=== PATIENT | female | born 1990 | race Caucasian/White ===

== ENCOUNTER 2024-09-16 14:16 | Emergency (ER) | payer OTHER, SELFPAY ==
[2024-09-16 14:17] VITALS: BP 135/110; PULSE 72; RESP 16; TEMP 36.8; O2SAT 97; BMI 23.3
--- NOTE | 2024-09-16 14:32 | EKG12_ITS ---
Test Reason : GENERAL Blood Pressure : */* mmHG Vent. Rate : 63 BPM Atrial Rate : 63 BPM P-R Int : 130 ms QRS Dur : 70 ms QT Int : 444 ms P-R-T Axes : 74 71 79 degrees QTcB Int : 454 ms Normal sinus rhythm Normal ECG Confirmed by Farhad Ramires ([id number]), telegraph editor ANABEL PEREZ ([id number]) on 09/18/2024 10:54:43 AM Referred By: Confirmed By: Farhad Ramires
--- NOTE | 2024-09-16 14:43 | EDS_ITS ---
HPI <MALACHI Alcazar - Last Filed: 09/16/24 17:00> History of Present Illness Chief Complaint: General Illness Narrative Narrative: 33-year-old female with past medical history of long COVID presents with low heart rate. She states her Apple Watch has notified her that her heart rate is running in the 40s at rest over the last week. Occasionally while she sleeps it drops to the high 30s. It goes up to a normal range with activity. She states she has felt like crap this week describing an increase in her chronic long COVID symptoms which include fatigue, nausea, chest pain, and generalized weakness. She has a telehealth appointment with her [facility] doctor on Wednesday but her mom felt she should not wait that long to be seen. The only medication she takes is methadone for the last 5 years. PFSH <MALACHI Alcazar - Last Filed: 09/16/24 17:00> [facility] Medical History (Updated 09/16/24 @ 17:00 by MALACHI Alcazar) Chronic headaches Substance abuse Anxiety Depression Smoker Long COVID Seizures (~06/17/22) Home Medications ?Medication ?Instructions ?Recorded ?Last Taken ?Type aspirin 81 mg tablet 81 mg PO DAILY 09/16/24 05/ History melatonin 10 mg capsule 20 mg PO QHS 09/16/24 History methadone 10 mg tablet 135 mg PO DAILY 09/16/24 Unk nown History Allergy/AdvReac Type Severity Reaction Status Date / Time No Known Allergies Allergy Verified 09/16/24 14:17 Social History Smoking Status: Current every day smoker tobacco type: cigarettes ROS <MALACHI Alcazar - Last Filed: 09/16/24 17:00> ROS ED ROS Narrative Constitutional: Positive for malaise. No fever or chills. CVS: Positive for chest pain. No palpitations or syncope. Respiratory: Negative for shortness of breath, cough, orthopnea. GI: Positive for nausea. No abdominal pain. : Negative for dysuria. Neuro: Negative for headache. EXAM <MALACHI Alcazar - Last Filed: 09/16/24 17:00> Physical Exam Narrative Exam Narrative: CONST: Patient sitting in no acute distress. EYES: Normal inspection. NECK: Normal inspection. RESP: No respiratory distress, CTAB. CVS: Regular rate and rhythm, no murmur, no gallop. ABD: Soft and nontender, no guarding or rebound, nondistended. SKIN: Color normal, no rash, warm, dry, intact. EXTREMITIES: Normal appearance, no pedal edema. NEURO: Alert and answering questions appropriately. PSYCH: Normal affect. Const Vital Signs: 09/16/24 14:17 09/16/24 14:27 09/16/24 16:26 Temperature 98.3 F Temperature Source Oral Pulse Rate 72 65 Respiratory Rate 16 21 H Respiratory Effort Normal Respiratory Pattern Normal Blood Pressure 135/110 H 122/75 H Blood Pressure Mean 118 90 Pulse Ox 97 100 Oxygen Delivery Method Room Air Room Air 09/16/24 16:49 Temperature 98.2 F Temperature Source Pulse Rate 54 L Respiratory Rate 19 H Respiratory Effort Respiratory Pattern Blood Pressure 129/82 H Blood Pressure Mean 97 Pulse Ox 97 Oxygen Delivery Method <Dr. Rafi Pratt DO - Last Filed: 09/16/24 19:38> Physical Exam Const Vital Signs: 09/16/24 14:17 09/16/24 14:27 09/16/24 16:26 Temperature 98.3 F Temperature Source Oral Pulse Rate 72 65 Respiratory Rate 16 21 H Respiratory Effort Normal Respiratory Pattern Normal Blood Pressure 135/110 H 122/75 H Blood Pressure Mean 118 90 Pulse Ox 97 100 Oxygen Delivery Method Room Air Room Air 09/16/24 16:49 Temperature 98.2 F Temperature Source Pulse Rate 54 L Respiratory Rate 19 H Respiratory Effort Respiratory Pattern Blood Pressure 129/82 H Blood Pressure Mean 97 Pulse Ox 97 Oxygen Delivery Method [facility] <MALACHI Alcazar - Last Filed: 09/16/24 17:00> [facility] Narrative Medical decision making narrative: History gathered from: Patient and her parents Differential includes but not limited to normal variance, electrolyte derangement, drug abuse 33-year-old female presents for evaluation of episodic bradycardia x 1 week. She also reports an increase in her long COVID symptoms including fatigue, nausea, and chest pain. She appears well and nontoxic. Vitals are stable?BP 135/110, NSR in the 70s, 97% on room air. During my exam her blood pressure is normalized at 120s/80s. Overall exam is benign. EKG shows normal sinus rhythm at rate of 63 bpm with what appeared to be U waves. Her blood work is all within normal limits including CBC, CMP, magnesium, and TSH. Urine drug screen is positive for methadone which she is prescribed and fentanyl which should not the positive with only methadone use. After patient was informed of these results, she states she did use IV fentanyl 4 days ago and uses it once a month. Cardiology was consulted and Dr. Doll reviewed the EKG and agreed today her U waves. It may be secondary to drug abuse. During the entirety of her stay here she was not bradycardic. 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 She was provided a referral here but may follow-up in [place] where she lives. Supervisory Physician Note Patient was seen and examined with the Advanced Practice Provider. Nursing notes and vital signs have been reviewed. Pertinent old records have been reviewed. I agree with the essential elements of the JIMBO's history, physical exam, assessment, and plan. The differential diagnosis and management options were discussed with the JIMBO. I participated in determining and agree with the management, procedures, final impression and disposition as documented. See changes noted by me. Please see addendum or separate note for any additional details. 33-year-old female with past medical history of long COVID, previous substance abuse on methadone presents for evaluation of bradycardia. Patient states for the the past several days her Apple Watch has showed intermittent bradycardia. She states her bradycardia has mostly been in the 40s but occasionally into the 30s when she sleeps. She states that it quickly resolves with ambulation. Associated symptom is general malaise Including fatigue, nausea, generalized weakness, chest pain -patient states that these are the symptoms of her long COVID. She currently denies any fever, chills, shortness of breath, chest pain, URI symptoms, abdominal pain, vomiting, dysuria. Denies . Denies any illicit drug abuse other than her daily methadone. Patient states she takes 130 mg of methadone daily. States her methadone dose has not been changed in 5 years. She lives in [place]. Gen: A&O x3, NAD Head: Normocephalic, atraumatic Eyes: No sclera icterus, conjunctiva clear, PERRL, EOMI ENT: Moist mucous membranes Neck: Trachea midline, No JVD, full range of motion CV: RRR, no murmurs, no peripheral edema Resp: Lungs CTA BL, no w/r/c GI: Abd soft, non-distended, non-tender, no r/r/g Musc: Full ROM, no deformity Skin: Warm, dry Neuro: Alert, oriented, grossly intact, sensation intact Psych: Cooperative, appropriate mood and affect Differential diagnosis includes but is not limited to arrhythmia, electrolyte abnormality, dehydration, thyroid disease, anemia, SHARATH, substance abuse, UTI. On presentation, vitals are stable other than some mild hypertension. Heart rate normal. Laboratory workup ordered including EKG and chest x-ray. EKG was personally reviewed and interpreted by tx, ED physician. EKG shows normal sinus rhythm with a heart rate of 64. Patient has a small deflection after the T wave. Repeat EKG ordered. EKG again shows normal sinus rhythm with a heart rate of 64. Again the deflection is seen diffusely concerning for U wave. Chest x-ray was personally reviewed interpreted by tx, ED physician. No c ardiomegaly, effusion, pneumothorax, pneumonia. CBC without leukocytosis or anemia. Platelets unremarkable. BMP unremarkable without significant electrolyte abnormality. Magnesium unremarkable. No SHARATH. TSH unremarkable. UA negative for UTI including ketones. Urine drug screen positive for methadone and fentanyl. Urine negative. Patient was updated of the fentanyl found in her urine. She does admit to using fentanyl this week. However states she does not use regularly. At this point in time, no clear etiology for patient's intermittent bradycardia. Patient has remained in normal sinus rhythm here in the emergency department. However given concern for possible U wave, cardiology was consulted and I spoke with Dr. Guzman. He personally reviewed the EKGs, agrees that this appears to be a U wave however given electrolytes are unremarkable recommends follow-up outpatient with cardiology. Holter monitor. Patient updated of all the results and confirmed understanding. Return precautions explained. Patient stable to discharge home. Impression: 1. Episodic bradycardia 2. U waves on EKG 3. Methadone use 4. Fentanyl abuse Lab Data Attestation: I reviewed the patient's lab results. Labs: Laboratory Results - last 24 hr 09/16/24 09/16/24 15:10 15:25 WBC 9.6 RBC 4.47 Hgb 13.6 Hct 39.8 MCV 89.0 MCH 30.4 MCHC 34.2 RDW Std Deviation 37.9 RDW Coeff of Isabelle 11.7 Plt Count 250 MPV 10.6 Immature Gran % (Auto) 0.200 Neut % (Auto) 75.4 H Lymph % (Auto) 18.7 L Forrest % (Auto) 4.6 Eos % (Auto) 0.7 Baso % (Auto) 0.4 Absolute Neuts (auto) 7.3 Absolute Lymphs (auto) 1.80 Nucleated RBC % 0 Sodium 137 Potassium 4.1 Chloride 101 Carbon Dioxide 24.2 Anion Gap 12 BUN 8 Creatinine 0.88 Estim Creat Clear Calc 95.03 Est GFR (MDRD) Non-Af 89 BUN/Creatinine Ratio 9.7 L Glucose 104 H Calcium 9.7 Magnesium 1.9 Troponin T High Sens < 6 TSH 1.260 Urine Color Straw Urine Clarity Clear Urine pH 6.5 Ur Specific [place] 1.005 Urine Protein Negative Urine Glucose (UA) Normal Urine Ketones Negative Urine Occult Blood Negative Urine Nitrite Negative Urine Bilirubin Negative Urine Urobilinogen Normal Ur Leukocyte Esterase Negative Urine RBC 0-5 SEEN Urine WBC 0-5 SEEN Ur Squamous Epith Cells 0-5 SEEN Urine Bacteria 0 SEEN Urine Mucus 0 SEEN Urine Test Negative Urine Opiates Screen NEGATIVE U Buprenorphine Qual NEGATIVE Ur Oxycodone Screen NEGATIVE Urine Methadone Screen PRESUMPTIVE POSITIVE Urine Fentanyl Screen PRESUMPTIVE POSITIVE Ur Barbiturates Screen NEGATIVE Ur Phencyclidine Scrn NEGATIVE Ur Amphetamines Screen NEGATIVE U Benzodiazepines Scrn NEGATIVE Urine Cocaine Screen NEGATIVE U Cannabinoids Screen NEGATIVE Radiography Diagnostic Testing: Clinical Impression(s) from Imaging Studies Chest X-Ray 09/16/24 15:30 IMPRESSION: No acute cardiopulmonary process. Reading Location: [facility] ED attending interpretation of 2-view chest x-ray shows normal heart size, no acute infiltrate, edema, or effusion. EKG Initial EKG: Attestation: I personally reviewed and interpreted this EKG as follows: Interpretation: Sinus Rhythm and No Acute Injury Pattern Comments: EKG shows normal sinus rhythm at 63 bpm but there are occasional appearance of U waves, repeat EKG shows U waves in all leads. Prior EKG tracings: not available for review <Dr. Rafi Pratt, DO - Last Filed: 09/16/24 19:38> [facility] MDM Narrative Medical decision making narrative: History gathered from: Patient and her parents Differential includes but not limited to normal variance, electrolyte derangement, drug abuse 33-year-old female presents for evaluation of episodic bradycardia x 1 week. She also reports an increase in her long COVID symptoms including fatigue, nausea, and chest pain. She appears well and nontoxic. Vitals are stable?BP 135/110, NSR in the 70s, 97% on room air. During my exam her blood pressure is normalized at 120s/80s. Overall exam is benign. EKG shows normal sinus rhythm at rate of 63 bpm with what appeared to be U waves. Her blood work is all within normal limits including CBC, CMP, magnesium, and TSH. Urine drug screen is positive for methadone which she is prescribed and fentanyl which should not the positive with only methadone use. After patient was informed of these results, she states she did use IV fentanyl 4 days ago and uses it once a month. Cardiology was consulted and Dr. Doll reviewed the EKG and agreed today her U waves. It may be secondary to drug abuse. During the entirety of her stay here she was not bradycardic. 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 She was provided a referral here but may follow-up in [place] where she lives. Supervisory Physician Note Patient was seen and examined with the Advanced Practice Provider. Nursing notes and vital signs have been reviewed. Pertinent old records have been reviewed. I agree with the essential elements of the JIMBO's history, physical exam, assessment, and plan. The differential diagnosis and management options were discussed with the JIMBO. I participated in determining and agree with the management, procedures, final impression and disposition as documented. See changes noted by me. Please see addendum or separate note for any additional details. 33-year-old female with past medical history of long COVID, previous substance abuse on methadone presents for evaluation of bradycardia. Patient states for the the past several days her Apple Watch has showed intermittent bradycardia. She states her bradycardia has mostly been in the 40s but occasionally into the 30s when she sleeps. She states that it quickly resolves with ambulation. Associated symptom is general malaise Including fatigue, nausea, generalized weakness, chest pain -patient states that these are the symptoms of her long COVID. She currently denies any fever, chills, shortness of breath, chest pain, URI symptoms, abdominal pain, vomiting, dysuria. Denies . Denies any illicit drug abuse other than her daily methadone. Patient states she takes 130 mg of methadone daily. States her methadone dose has not been changed in 5 years. She lives in [place]. Gen: A&O x3, NAD Head: Normocephalic, atraumatic Eyes: No sclera icterus, conjunctiva clear, PERRL, EOMI ENT: Moist mucous membranes Neck: Trachea midline, No JVD, full range of motion CV: RRR, no murmurs, no peripheral edema Resp: Lungs CTA BL, no w/r/c GI: Abd soft, non-distended, non-tender, no r/r/g Musc: Full ROM, no deformity Skin: Warm, dry Neuro: Alert, oriented, grossly intact, sensation intact Psych: Cooperative, appropriate mood and affect Differential diagnosis includes but is not limited to arrhythmia, electrolyte abnormality, dehydration, thyroid disease, anemia, SHARATH, substance abuse, UTI. On presentation, vitals are stable other than some mild hypertension. Heart rate normal. Laboratory workup ordered including EKG and chest x-ray. EKG was personally reviewed and interpreted by tx, ED physician. EKG shows normal sinus rhythm with a heart rate of 64. Patient has a small deflection after the T wave. Repeat EKG ordered. EKG again shows normal sinus rhythm with a heart rate of 64. Again the deflection is seen diffusely concerning for U wave. Chest x-ray was personally reviewed interpreted by tx, ED physician. No cardiomegaly, effusion, pneumothorax, pneumonia. CBC without leukocytosis or anemia. Platelets unremarkable. BMP unremarkable without significant electrolyte abnormality. Magnesium unremarkable. No SHARATH. TSH unremarkable. UA negative for UTI including ketones. Urine drug screen positive for methadone and fentanyl. Urine negative. Patient was updated of the fentanyl found in her urine. She does admit to using fentanyl this week. However states she does not use regularly. At this point in time, no clear etiology for patient's intermittent bradycardia. Patient has remained in normal sinus rhythm here in the emergency department. However given concern for possible U wave, cardiology was consulted and I spoke with Dr. Guzman. He personally reviewed the EKGs, agrees that this appears to be a U wave however given electrolytes are unremarkable recommends follow-up outpatient with cardiology. We attempted to discharge the patient home with holter monitor although none were available. Patient updated of all the results and confirmed understanding. Return prec autions explained. Patient stable to discharge home. Impression: 1. Episodic bradycardia 2. U waves on EKG 3. Methadone use 4. Fentanyl abuse Lab Data Labs: Laboratory Results - last 24 hr 09/16/24 09/16/24 15:10 15:25 WBC 9.6 RBC 4.47 Hgb 13.6 Hct 39.8 MCV 89.0 MCH 30.4 MCHC 34.2 RDW Std Deviation 37.9 RDW Coeff of Isabelle 11.7 Plt Count 250 MPV 10.6 Immature Gran % (Auto) 0.200 Neut % (Auto) 75.4 H Lymph % (Auto) 18.7 L Forrest % (Auto) 4.6 Eos % (Auto) 0.7 Baso % (Auto) 0.4 Absolute Neuts (auto) 7.3 Absolute Lymphs (auto) 1.80 Nucleated RBC % 0 Sodium 137 Potassium 4.1 Chloride 101 Carbon Dioxide 24.2 Anion Gap 12 BUN 8 Creatinine 0.88 Estim Creat Clear Calc 95.03 Est GFR (MDRD) Non-Af 89 BUN/Creatinine Ratio 9.7 L Glucose 104 H Calcium 9.7 Magnesium 1.9 Troponin T High Sens < 6 TSH 1.260 Urine Color Straw Urine Clarity Clear Urine pH 6.5 Ur Specific [place] 1.005 Urine Protein Negative Urine Glucose (UA) Normal Urine Ketones Negative Urine Occult Blood Negative Urine Nitrite Negative Urine Bilirubin Negative Urine Urobilinogen Normal Ur Leukocyte Esterase Negative Urine RBC 0-5 SEEN Urine WBC 0-5 SEEN Ur Squamous Epith Cells 0-5 SEEN Urine Bacteria 0 SEEN Urine Mucus 0 SEEN Urine Test Negative Urine Opiates Screen NEGATIVE U Buprenorphine Qual NEGATIVE Ur Oxycodone Screen NEGATIVE Urine Methadone Screen PRESUMPTIVE POSITIVE Urine Fentanyl Screen PRESUMPTIVE POSITIVE Ur Barbiturates Screen NEGATIVE Ur Phencyclidine Scrn NEGATIVE Ur Amphetamines Screen NEGATIVE U Benzodiazepines Scrn NEGATIVE Urine Cocaine Screen NEGATIVE U Cannabinoids Screen NEGATIVE Radiography Diagnostic Testing: Clinical Impression(s) from Imaging Studies Chest X-Ray 09/16/24 15:30 IMPRESSION: No acute cardiopulmonary process. Reading Location: [facility] Discharge Plan Triage Chief Complaint: General Illness ED Midlevel Provider: Nohemy Guillaume ED Provider: Rafi Pratt Dx/Rx/DC Orders Clinical Impression: Bradycardia, Abnormal U wave present on electrocardiography, Opioid use Instructions: ED Bradycardia Prescriptions: No Action aspirin 81 mg tablet 81 mg PO DAILY melatonin 10 mg capsule 20 mg PO QHS methadone 10 mg tablet 135 mg PO DAILY Rx Instructions: PT STATES SHE TAKES 135MG OF METHADONE TABLET DAILY. Primary Care Provider: KALI ULLOA Referrals: Flo Guzman MD [Med Staff - Active Staff] - [facility] Doctor,Out of [Non-Staff] - Activity Restrictions/Additional Instructions: Your screening blood work here was normal. Your EKG shows an abnormality called U waves. I recommend you follow-up with a PCP and a carpet weaver to address your symptoms. Print Language: Tongan Disposition Disposition: Home, Self Care Discharge Date/Time: 09/16/24 17:19
--- NOTE | 2024-09-16 15:05 | EKG12_ITS ---
Test Reason : REPEAT-PER DR GOMEZ Blood Pressure : */* mmHG Vent. Rate : 64 BPM Atrial Rate : 64 BPM P-R Int : 124 ms QRS Dur : 76 ms QT Int : 432 ms P-R-T Axes : 82 67 77 degrees QTcB Int : 445 ms Normal sinus rhythm Normal ECG Confirmed by Farhad Ramires ([id number]), loan expeditor ANABEL PEREZ ([id number]) on 09/18/2024 10:54:32 AM Referred By: Confirmed By: Farhad Ramires
[2024-09-16 15:26] LABS: Absolute Neutrophil Count 7.3 X10^3/uL (2.0-7.7); Basophil# 0.04 X10^3/uL; Basophil% 0.4 % (0-1); Eosinophil# 0.07 X10^3/uL; Eosinophils% 0.7 % (0-5); Hematocrit 39.8 % (37-47); Hemoglobin 13.6 g/dL (12.0-15.0); Lymphocyte % 18.7 % (19-41); Mean Corp Hgb Conc 34.2 g/dL (32-36); Mean Corpuscular Hgb 30.4 pg (27.0-32.0); Mean Platelet Vol. 10.6 fl (6.2-12.0); Monocyte# 0.44 X10^3/uL; Monocyte% 4.6 % (0-10); NRBC Flagged by Analyzer 0 % (0-5); Neutrophil # 7.25 X10^3/uL (2.7-7.7); Neutrophil % 75.4 % (47-70); Platelet Count 250 K/mm3 (150-450); RBC Distribution Width CV 11.7 % (11.6-14.6); RBC Distribution Width SD 37.9 fl (35.1-43.9); Red Blood Count 4.47 M/mm3 (4.2-5.4); White Blood Count 9.6 K/mm3 (4.4-11.0)
--- NOTE | 2024-09-16 15:30 | RAD_ITS ---
EXAM: XR Chest, 2 Views CLINICAL INDICATION: CHEST PAIN TECHNIQUE: Frontal and lateral views of the chest. COMPARISON: No relevant prior studies available. FINDINGS: LUNGS AND PLEURAL SPACES: Unremarkable. No consolidation. No pneumothorax. HEART: Unremarkable. No cardiomegaly. MEDIASTINUM: Unremarkable. Normal mediastinal contour. BONES/JOINTS: Unremarkable. No acute fracture. RAD/Chest PA and Lateral IMPRESSION: No acute cardiopulmonary process. Reading Location: [id number]
[2024-09-16 15:36] LABS: Bacteria 0 SEEN /hpf (None Seen); Mucous, Urine 0 SEEN /hpf (<or=2+)
[2024-09-16 15:42] LABS: Internal QC Validated? YES +Cl - CLEAR BKGD; Pregnancy, Urine Negative Negative
[2024-09-16 15:43] LABS: Record Kit Lot#,Urine Preg 947241
[2024-09-16 15:51] LABS: Anion Gap 12 (5-15); BUN 8 mg/dL (4-19); BUN/Creat Ratio 9.7 RATIO (10-20); Calcium,Total 9.7 mg/dL (7.6-11.0); Carbon Dioxide 24.2 mmol/L (21.0-32.0); Chloride 101 mmol/L (98-108); Creatinine, Serum 0.88 mg/dL (0.70-1.20); EST Glomerular Filtration Rate 89 (>60); Estimated Creatinine Clearance 95.03 ml/min (50-250); Glucose 104 mg/dL (70-99); Magnesium 1.9 mg/dL (1.5-2.2); Potassium 4.1 mmol/L (3.3-5.1); Sodium Level 137 mmol/L (133-145); Troponin T High Sensitivity < 6 ng/L (<=14)
[2024-09-16 15:52] LABS: Amphetamine Urine NEGATIVE (<1000 ng/mL); Barbiturate Urine NEGATIVE (< 200 ng/mL); Benzodiazepine Urine NEGATIVE (< 200 ng/mL); Buprenorphine Urine NEGATIVE (< 200 ng/mL); Cocaine Urine NEGATIVE (< 300 ng/mL); Fentanyl, Urine PRESUMPTIVE POSITIVE; Methadone Urine PRESUMPTIVE POSITIVE (< 300 ng/mL); Opiates Urine NEGATIVE (< 300 ng/mL); Oxycodone, Urine NEGATIVE (< 100 ng/mL); PCP Urine NEGATIVE (< 25 ng/mL); THC Urine NEGATIVE (< 50 ng/mL)
[2024-09-16 16:04] LABS: Color, Urine Straw (Yellow); Glucose, Dipstick Normal (Normal); Ketone-Dipstick Negative (Negative); Leukocyte Esterase-Dipstick Negative /ul (Negative); Nitrite-Dipstick Negative (Negative); Occult Blood-Urine Negative /ul (Negative); Protein-Dipstick Negative (Negative); Specific Gravity, Urine 1.005 (1.002-1.030); Urine Bilirubin Dipstick Negative (Negative); Urine Clarity Clear (Clear); Urine Urobilinogen Normal (Normal); Urine pH 6.5 (5.0 - 8.0)
[2024-09-16 16:26] VITALS: BP 122/75; PULSE 65; RESP 21; O2SAT 100
[2024-09-16 16:36] LABS: Red Blood Cells-Urine 0-5 SEEN /hpf (0-5); Squamous Epithelial Cells - UA 0-5 SEEN /hpf (5-10); White Blood Cells 0-5 SEEN /hpf (0-5)
[2024-09-16 16:49] VITALS: BP 129/82; PULSE 54; RESP 19; TEMP 36.8; O2SAT 97
== END 2024-09-16 17:19 | disposition home or self-care (01) ==
PROVIDERS: Physician Assistant; Emergency Provider Surgery; Visit Provider Surgery
DX: R00.1 Bradycardia, unspecified (principal); F11.10 Opioid abuse, uncomplicated; R94.31 Abnormal electrocardiogram [ECG] [EKG]; F17.210 Nicotine dependence, cigarettes, uncomplicated; Z79.82 Long term (current) use of aspirin; Z79.891 Long term (current) use of opiate analgesic
CPT/HCPCS: 71046; 80048; 80307; 81001; 81025; 83735; 84443; 84484; 85025; 93005; 99283; A4216